=== PATIENT | male | born 1935 | race Caucasian/White ===

== ENCOUNTER 2017-07-01 11:30 | Emergency (ER) | payer OTHER ==
[~2017-07-01] VITALS: Ht 170.2 cm; Wt 76.2 kg
[~2017-07-01 11:30] MED LIST: AMLODIPINE BES2.5 MG PO; LANTUS 10100 UNITS/ SC; LEVETIRACETAM500 MG PO; LIPITOR80 MG PO; LO-DOSE ASPIRIN81 M2 PO; LOSARTAN POTASS25 MG PO; NOVOLOG 10100 UNITS/ SC; PLAVIX75 MG PO; SYNTHROID50 MCG PO; TERAZOSIN HCL2 MG PO
[2017-07-01 11:57] LABS: POINT-OF-CARE METER ID UU14100415; POINT-OF-CARE USER ID NUTJNM
[2017-07-01 12:28] LABS: EOSINOPHIL (%) 2.2 % (0-5); EOSINOPHIL COUNT 0.2 K/uL (0-0.3); HEMATOCRIT 35.9 % (38.0-50.0); IMMATURE GRANULOCYTE (%) 0.4 % (0.0-0.7); LYMPHOCYTE COUNT 2.4 K/uL (1.0-2.8); MCH 30.3 PG (29.0-34.0); MCHC 32.6 G/DL (30.0-36.0); MEAN PLAT.VOLUME 9.9 uM^3 (9.0-12.4); MONOCYTE (%) 7.2 % (3-12); MONOCYTE COUNT 0.8 K/uL (0-0.8); NEUTROPHIL (%) 67.1 % (45-76); PLATELET COUNT 188 K/uL (156-360); RBC DIS.WIDTH-CV 14.3 % (11.8-14.6); RBC DIS.WIDTH-SD 48.5 % (39-53); RED BLOOD COUNT 3.86 M/uL (4.00-5.50); WHITE BLOOD COUNT 10.5 K/uL (4.1-10.2)
[2017-07-01 12:42] LABS: CHLORIDE 107 mEq/L (99-109); POTASSIUM 3.5 mEq/L (3.7-5.4); SODIUM 141 mEq/L (136-147)
[2017-07-01 12:44] LABS: GLUCOSE 220 mg/dL (70-99)
[2017-07-01 12:45] LABS: ANION GAP 6 MEQ/L (2-14)
[2017-07-01 12:46] LABS: TOTAL BILIRUBIN 0.5 mg/dL (0.0-1.0)
[2017-07-01 12:47] LABS: ALKALINE PHOSPHATASE 111 IU/L (3-129)
[2017-07-01 12:48] LABS: GFR ESTIMATE (CALCULATED) > 59 mL/min/
[2017-07-01 12:49] LABS: UREA NITROGEN (BUN) 23 mg/dL (9-23)
[2017-07-01 16:17] LABS: ADD MIUA? YES; BILIRUBIN NEGATIVE; BLOOD NEGATIVE; COLOR YELLOW ((YELLOW)); GLUCOSE (STRIP) 50; KETONES NEGATIVE; LEUKOCYTES NEGATIVE; NITRITE NEGATIVE; PROTEIN (STRIP) 100; SPECIFIC GRAVITY 1.021 (1.000-1.030)
[2017-07-01 16:25] LABS: BACTERIA RARE /HPF; EPITHELIAL CELLS RARE /HPF; MUCUS 1+ /LPF; UCUL ADDED? NO; WHITE BLOOD CELLS 0-5 /HPF (0-5)
[2017-07-01 20:50] VITALS: BP 178/77
== END 2017-07-01 20:51 | disposition short-term general hospital (02) ==
LOC: EME 11:30
PROVIDERS: Emergency Medicine
DX: J18.9 Pneumonia, unspecified organism (principal); R41.82 Altered mental status, unspecified; E87.6 Hypokalemia; E11.9 Type 2 diabetes mellitus without complications; I10 Essential (primary) hypertension; I69.354 Hemiplegia and hemiparesis following cerebral infarction affecting left non-dominant side; Z60.8 Other problems related to social environment; Z95.1 Presence of aortocoronary bypass graft; Z79.4 Long term (current) use of insulin; Z79.02 Long term (current) use of antithrombotics/antiplatelets; Z79.82 Long term (current) use of aspirin
CPT/HCPCS: 70450; 71010; 80053; 81003; 82948; 84439; 84443; 85025; 87040; 93971; 99281; 99285; J0456; J2543; J7030; J7050